=== PATIENT | male | born 1995 | race Two or more races ===

== ENCOUNTER 2019-12-13 18:14 | Emergency (ER) | payer SELFPAY ==
[~2019-12-13] VITALS: Ht 167.6 cm; Wt 88.5 kg
[2019-12-13 20:30] VITALS: BP 133/88
[2019-12-13] MEDS ORDERED: ONDANSETRON ODT 4 MG TAB PO ONE (20:30)
[2019-12-13] MEDS ORDERED: KETOROLAC TROMETH 60MG/2ML VIAL IM ONE (20:30)
== END 2019-12-13 20:46 | disposition home or self-care (01) ==
LOC: ER 18:14
DX: L02.413 Cutaneous abscess of right upper limb (principal); F14.90 Cocaine use, unspecified, uncomplicated; F15.90 Other stimulant use, unspecified, uncomplicated; F12.90 Cannabis use, unspecified, uncomplicated; F10.20 Alcohol dependence, uncomplicated; Y90.9 Presence of alcohol in blood, level not specified; F11.90 Opioid use, unspecified, uncomplicated; F17.200 Nicotine dependence, unspecified, uncomplicated
CPT/HCPCS: 10060; 96372; 99283; J1885; Q0162